=== PATIENT | female | born 1930 | race Caucasian/White ===

== ENCOUNTER 2016-09-15 12:06 | Outpatient (CLI) | payer OTHER ==
[2015-07-14 13:45] VITALS: BMI 23.4
--- NOTE | 2016-09-15 14:03 | DI ---
Examination: Two radiographic images of the chest. Comparison: 05/22/2014. Reason for study: Shortness of breath. FINDINGS: No pneumothorax, pleural effusion, or focal consolidation. The cardiac silhouette is unc hanged. Operative changes seen after ACDF. Surgical clips are seen in the right upper quadrant. Impression: No acute cardiopulmonary findings.
--- NOTE | 2016-09-15 14:15 | CT ---
EXAM: CT cervical spine without contrast HISTORY: Cervical radiculopathy COMPARISON: 05/19/2014 TECHNIQUE: CT cervical spine performed without intravenous contrast. Coronal and sagittal reformat tony images obtained. FINDINGS: There is redemonstration of anterior spinal fusion of C5-C7. Hardware appears intact. V ertebral bodies normal height. No fracture. No subluxation. Mild intervertebral disc is narrowing at C4-C5. Multilevel facet and uncovertebral hypertrophy. Mild biapical scarring. There is a new s oft tissue mass in the left neck lateral to the thyroid measuring 3.3 x 3.1 cm, incompletely imaged. Right thyroid nodule noted. Prevertebral soft tissues appear normal. C2-C3: No central canal or neural foraminal narrowing. C3-C4: No central canal or neural foraminal narrowing. C4-C5: Posterior disc osteophyte complex and facet arthrosis causing mild central canal and mild bi lateral neural foraminal narrowing. C5-C6: Posterior disc osteophyte complex and facet arthrosis causing mild bilateral neural foramina l narrowing. C6-C7: No central canal or neural foraminal narrowing. C7-T1: No central canal or neural foraminal narrowing. IMPRESSION: 1. Status post anterior spinal fusion C5-C7. No acute abnormality cervical spine. 2. Chronic discogenic degenerative disease and facet arthrosis. Please see segmental analysis. 3. Unexpected finding: New 3.3 cm soft tissue mass left neck, suspicious for malignancy. Please s ee separate report CT neck.
--- NOTE | 2016-09-15 14:18 | CT ---
Examination: Noncontrasted soft tissues CT examination of the neck. Comparison: 05/19/2014. Reason for study: Cervical radiculopathy with muscle spasm and left-sided neck swelling with pain i n jaw. FINDINGS: There is a new 3.7 x 3.5 x 4.0 m mass in the supraclavicular left anterior neck just infe rior and lateral to the left thyroid lobe. There are multiple prominent supraclavicular left-sided lymph nodes measuring up to 1.2 cm. The hypopharynx, oropharynx, subglottic region, and aerodigestive tract is unremarkable. Operative c hanges are seen after ACDF spanning C5-C7. Emphysematous changes are noted in the lung apices. Impression: 1. Unexpected finding. 4 cm mass in the left supraclavicular anterior neck with prominent left-side d paracervical lymph nodes. Findings are concerning for metastatic disease. Recommend further eval uation/biopsy is recommended. 2. Emphysematous and postoperative changes. 3. The aerodigestive tract appears unremarkable.
== END 2016-09-15 12:07 | disposition home or self-care (01) ==
LOC: RAD 12:06
PROVIDERS: ATTEND Emergency Medicine
DX: M54.12 Radiculopathy, cervical region (principal); M62.830 Muscle spasm of back

== ENCOUNTER 2016-09-19 08:55 | Outpatient (CLI) ==
[2015-07-14 13:45] VITALS: BMI 23.4
--- NOTE | 2016-09-19 10:21 | CT ---
Examination: Noncontrast CT helical imaging of the abdomen pelvis with axial, sagittal, and coronal reconstruction. Reason for study: Diarrhea and cervical lymphadenopathy. Comparison: Ultrasound of the abdomen performed 09/15/2010, ultrasound right upper quadrant perform ed 03/27/2013. FINDINGS: Within the partially imaged lung bases, there is bibasilar atelectasis and scarring. No pneumothora jenaro, pleural effusions, focal consolidations. Emphysematous changes are seen within the lung parench yma. Imaging interpretation is limited by lack of intravenous contrast administration. Atherosclerotic disease is seen within the aorta and distal arterial vasculature. The gallbladder is been removed. The liver, spleen, and adrenal glands are unremarkable. There is fatty infiltration of the pancreas. No hydronephrosis or hydroureter. There is no focal bowel dilatation or transition point. The appendix is not seen. There are scatte red colonic diverticula. No pelvic free fluid or intra-abdominal free air. There is a tiny only fa t containing periumbilical hernia. Inflammatory changes and prominent lymph nodes are seen throughout the abdominal mesentery measuring up to 3 cm. Operative changes are seen in the left hip. Circumscribed hypodensity in the right iliac seen on axial image number 49. Impression: 1. Unexpected finding. Prominent mesenteric lymph nodes measuring up to 3 cm with surrounding infl ammatory change. Imaging findings can be seen with inflammatory, infectious, and neoplastic etiolog ies (lymphoma). Recommend further evaluation. 2. No other acute findings are seen within the abdomen or pelvis.
== END 2016-09-19 08:56 | disposition home or self-care (01) ==
LOC: RAD 08:55
PROVIDERS: ATTEND Internal Medicine
DX: R19.7 Diarrhea, unspecified (principal); R59.0 Localized enlarged lymph nodes

== ENCOUNTER 2017-06-26 11:24 | Outpatient (CLI) ==
[2015-07-14 13:45] VITALS: BMI 23.4
--- NOTE | 2017-06-26 11:47 | DI ---
EXAM: CHEST FRONTAL AND LATERAL VIEWS HISTORY: Cough. COMPARISON: 09/15/2016 FINDINGS: Heart size remains within normal limits. Left port catheter has been placed ending over t he superior vena cava. Lungs are hyperinflated. Diffuse chronic-appearing interstitial changes. No definite consolidated pneumonia. Normal vascularity with no pneumothorax or pleural fluid. Stabili zation hardware over the lower cervical spine. IMPRESSION: Probable component chronic obstructive pulmonary disease, correlate clinically. No definite consolid ated pneumonia.
[2017-06-26 13:58] VITALS: BMI 21.1
== END 2017-06-26 11:25 | disposition home or self-care (01) ==
LOC: RAD 11:24
PROVIDERS: ATTEND Internal Medicine
DX: R05 Cough (principal)

== ENCOUNTER 2017-06-26 12:47 | Inpatient (IN) ==
[2017-06-26] MEDS ORDERED: MORPHINE 4 MG/ML VIAL IVP PRN (13:17)
[2017-06-26] MEDS ORDERED: ATROPINE SULFATE PFS IVP PRN (13:17)
[2017-06-26] MEDS ORDERED: VISTARIL INJ IM PRN (13:17)
[2017-06-26] MEDS ORDERED: NITROSTAT SL PRN (13:17)
[2017-06-26] MEDS ORDERED: SOLU-CORTEF 100 MG 100 MG in SODIUM CHLORIDE 100 ML IV ONE (13:23)
[2017-06-26 13:58] VITALS: BMI 21.1
[2017-06-26 14:16] LABS: BASOPHILS % (AUTO) 0.7 % (0.0-3.0); EOSINOPHILS # (AUTO) 0.1 K/ul (0.0-0.7); EOSINOPHILS % (AUTO) 1.7 % (0.0-7.0); HEMATOCRIT 33.3 % (37.0-47.0); HEMOGLOBIN 11.4 g/dl (12.0-16.0); IMMATURE GRANULOCYTE % (AUTO) 0.7 % (0.0-5.0); LYMPHOCYTES # (AUTO) 2.7 K/uL (0.60-3.4); LYMPHOCYTES % (AUTO) 57.5 (10.0-50.0); MEAN CORPUSCULAR HEMOGLOBIN 30.1 pg (27.0-31.0); MEAN CORPUSCULAR HGB CONC 34.2 (31.8-35.4); MEAN CORPUSCULAR VOLUME 87.9 fl (81.0-99.0); MONOCYTES # (AUTO) 0.5 K/uL (0.4-2.0); MONOCYTES % (AUTO) 11.7 (0-10); NEUTROPHILS # (AUTO) 1.3 K/ul (2.0-6.9); NEUTROPHILS % (AUTO) 27.7; PLATELET COUNT 152 10^3/uL (140-440); RED BLOOD COUNT 3.79 10^6/ul (4.20-5.40); WHITE BLOOD COUNT 4.61 K/ul (4.6-10.2)
[2017-06-26] MEDS ORDERED: NORCO 5-325 PO PRN ×2 (14:29→14:50)
[2017-06-26] MEDS ORDERED: ZOFRAN TAB PO PRN (14:50)
[2017-06-26] MEDS: ZITHROMAX PO SCH (14:53)
[2017-06-26] MEDS: DEXTROSE 5%-1/2NS IV SOLUTION 1,000 ML IV SCH (14:53)
[2017-06-26] MEDS: LEVAQUIN 250 MG in PREMIX 50 ML D5W 1 BAG IV SCH (14:53)
[2017-06-26] MEDS ORDERED: PROPRANOLOL HCL 10 MG PO SCH ×21 (15:00)
[2017-06-26] MEDS: SOLU-CORTEF 100 MG IVP SCH ×2 (15:13→20:32)
[2017-06-26 15:31] LABS: CREATINE KINASE 44 U/L; MYOGLOBIN 35 ng/ml
[2017-06-26 15:32] LABS: FLU INTERNAL QC INTERNAL QC VALID; RAPID FLU A NEGATIVE (NEGATIVE); RAPID FLU B NEGATIVE (NEGATIVE)
[2017-06-26] MEDS: INDERAL PO SCH ×2 (15:33→20:32)
[2017-06-26 16:53] LABS: BILIRUBIN,URINE 1+ (NEGATIVE); KETONES,URINE Negative (NEGATIVE); LEUKOCYTE ESTERASE ,URINE Trace (NEGATIVE); NITRITE,URINE Negative (NEGATIVE); PROTEIN,URINE 1+ (NEGATIVE); URINE, BLOOD Negative (NEGATIVE)
[2017-06-26 16:56] LABS: ADD URINE MICROSCOPIC YES
[2017-06-26] MEDS: DUONEB NEB SCH (17:17)
[2017-06-26 18:05] LABS: ALBUMIN/GLOBULIN RATIO 0.91; ANION GAP 16.3; BILIRUBIN,TOTAL 0.28 mg/dL (0.00-1.20); BUN/CREATININE RATIO 12.67; CALCIUM 9.7 mg/dL (8.2-10.2); CREATININE 0.71 mg/dL (0.60-1.30); POTASSIUM 3.3 mmol/L (3.5-5.10); TOTAL PROTEIN 6.3 g/dL (5.8-8.1)
[2017-06-26] MEDS ORDERED: NON-FORMULARY MEDICATION (Ondansetron Hcl [Zofran] 8 MG) PO SCH (21:00)
[2017-06-26] MEDS ORDERED: NON-FORMULARY MEDICATION (Atorvastatin Calcium [Atorvastatin Calcium] 40 MG) PO SCH ×22 (21:00)
[2017-06-26 21:55] LABS: CREATINE KINASE 41 U/L; MYOGLOBIN 34 ng/ml
[2017-06-27] MEDS: DUONEB NEB SCH ×3 (00:15→11:23)
[2017-06-27] MEDS: DEXTROSE 5%-1/2NS IV SOLUTION 1,000 ML IV SCH (03:50)
[2017-06-27 05:20] LABS: BASOPHILS % (AUTO) 0.3 % (0.0-3.0); HEMATOCRIT 27.7 % (37.0-47.0); HEMOGLOBIN 9.4 g/dl (12.0-16.0); IMMATURE GRANULOCYTE % (AUTO) 0.7 % (0.0-5.0); LYMPHOCYTES # (AUTO) 1.4 K/uL (0.60-3.4); LYMPHOCYTES % (AUTO) 47.2 (10.0-50.0); MEAN CORPUSCULAR HEMOGLOBIN 29.8 pg (27.0-31.0); MEAN CORPUSCULAR HGB CONC 33.9 (31.8-35.4); MEAN CORPUSCULAR VOLUME 87.9 fl (81.0-99.0); MONOCYTES # (AUTO) 0.3 K/uL (0.4-2.0); NEUTROPHILS # (AUTO) 1.2 K/ul (2.0-6.9); NEUTROPHILS % (AUTO) 42.8; PLATELET COUNT 122 10^3/uL (140-440); RED BLOOD COUNT 3.15 10^6/ul (4.20-5.40)
[2017-06-27 05:40] LABS: ALBUMIN 2.5 g/dL (3.4-5.0); ALBUMIN/GLOBULIN RATIO 0.93; ANION GAP 13.9; BILIRUBIN,TOTAL 0.17 mg/dL (0.00-1.20); BUN/CREATININE RATIO 13.04; CALCIUM 8.8 mg/dL (8.2-10.2); CREATININE 0.69 mg/dL (0.60-1.30); POTASSIUM 3.9 mmol/L (3.5-5.10); TOTAL PROTEIN 5.2 g/dL (5.8-8.1)
[2017-06-27] MEDS: SOLU-CORTEF 100 MG IVP SCH ×3 (06:25→21:00)
[2017-06-27] MEDS: PROTONIX PO SCH (06:25)
[2017-06-27] MEDS ORDERED: CHLORASEPTIC SPRAY MM PRN (08:37)
[2017-06-27] MEDS: LEVAQUIN 250 MG in PREMIX 50 ML D5W 1 BAG IV SCH (08:53)
[2017-06-27] MEDS: ASPIRIN EC PO SCH (08:55)
[2017-06-27] MEDS: INDERAL PO SCH ×3 (08:56→21:16)
[2017-06-27] MEDS: LIPITOR PO SCH (08:57)
[2017-06-27] MEDS: K-DUR PO SCH (08:57)
[2017-06-27] MEDS: MEGACE PO SCH (08:58)
[2017-06-27] MEDS: ZITHROMAX PO SCH (08:59)
[2017-06-27] MEDS ORDERED: ZYLOPRIM PO SCH (09:00)
[2017-06-27] MEDS ORDERED: NON-FORMULARY MEDICATION (Esomeprazole Magnesium [Nexium] 40 MG) PO SCH ×22 (09:00)
[2017-06-27] MEDS: ZYLOPRIM PO SCH (09:00)
--- NOTE | 2017-06-27 10:57 | PCM.PROG ---
Attending Provider: ATTENDING PROVIDER: Dr. DC ARRIETA DATE OF SERVICE: 06/27/17 SUBJECTIVE: This 86 year old WHITE/ F was hospitalized 06/26/17. The patient is hospitalized with acute pneumonitis and bronchitis. The patient's condition has improved, is feeling better. The patient has insomnia. REVIEW OF SYSTEMS: CONSTITUTIONAL: No night sweats. No fatigue, malaise, lethargy. No fever or chills. HEENT: Eyes: No visual changes. No eye pain. No eye discharge. ENT: No runny nose. No epistaxis. No sinus pain. No odynophagia. No congestion. RESPIRATORY: No cough, no congestion. No hemoptysis. No shortness of breath. CARDIOVASCULAR: No angina symptoms. No CHF symptoms. No atypical chest pain for CAD. No palpitations. No orthopnea.. GASTROINTESTINAL: Good appetite. No abdominal pain. No nausea or vomiting. No diarrhea or constipation. No hematemesis. No hematochezia. GENITOURINARY: No urgency. No frequency. No dysuria. No hematuria. No obstructive symptoms. No discharge. No pain. No significant abnormal bleeding. MUSCULOSKELETAL: No musculoskeletal pain; no joint swelling. NEUROLOGICAL: Awake, alert, oriented to time, place and person. No headache. No neck pain. No syncope. No seizures. No dizziness. PSYCHIATRIC: Not anxious. No depression. No suicidal thoughts. No homicidal thoughts. SKIN: No rash. No lesions. No wounds. ENDOCRINE: No unexplained weight loss. No weight gain. HEMATOLOGIC/LYMPHATIC: No anemia. No purpura. No petechiae. No prolonged or excessive bleeding. No palpable lymph nodes. PHYSICAL EXAMINATION: GENERAL: The patient is awake, alert and oriented, lying/sitting in bed in no distress. VITAL SIGNS: Temperature 97.9 F, Pulse 93, Respiratory Rate 18, BP 102/50, Pulse Ox 97% HEENT: Head normocephalic, atraumatic. Eyes: Extraocular muscles are intact. Pupils are equal, round and reactive to light and accommodation. Ears: No lesions. Nose appeared normal. Throat: No exudate or erythema. NECK: Supple. No JVD, no carotid bruit. No lymphadenopathy or thyromegaly. LUNGS: Decreased breath sounds. Clear to auscultation. Percussion note normal. Chest symmetrical. HEART: S1, S2, no S3. No murmurs. No cyanosis or clubbing. No ascites. Pulses: Dorsalis pedis and posterior tibial pulses +1 to +2 both sides. ABDOMEN: Soft. Non-tender. Bowel sounds active. No CVA tenderness. No mass felt. EXTREMITIES: No edema. Full range of motion of all extremities, equal. NEUROLOGIC: No focal deficit. Cranial nerves II through XII are grossly intact. No headache, no double vision or headache. SKIN: Not dry. Intact. Turgor-normal. LYMPHATIC: No palpable lymph nodes/no lymphedema. MUSCULOSKELETAL: Normal joints with no swelling. Muscle tone is normal. LAB REVIEW: 06/27/17 04:15 06/27/17 04:15 06/27/17 04:15: Sodium 139, Potassium 3.9, Chloride 109 H, Carbon Dioxide 20 L, Anion Gap 13.9, BUN 9, Creatinine 0.69, Estimated GFR (MDRD) 81.00, BUN/ Creatinine Ratio 13.04, Glucose 241 H D, Calcium 8.8, Total Bilirubin 0.17, AST 23, ALT 22, Alkaline Phosphatase 100 D, Total Protein 5.2 L, Albumin 2.5 L, Globulin 2.7, Albumin/Globulin Ratio 0.93 06/27/17 04:15: WBC 2.90 L, RBC 3.15 L, Hgb 9.4 L, Hct 27.7 L, MCV 87.9, MCH 29.8, MCHC 33.9, RDW Coeff of [place] 15.4 H, Plt Count 122 L, Immature Gran % (Auto ) 0.7, Neut % (Auto) 42.8, Lymph % (Auto) 47.2, [place] % (Auto) 9.0, Eos % (Auto) 0.0, Baso % (Auto) 0.3, Immature Gran # (Auto) 0.0, Neut # 1.2 L, Lymph # 1.4, [place] # 0.3 L, Eos # 0.0, Baso # 0.0 06/26/17 21:28: Total Creatine Kinase 41, Myoglobin 34, Troponin I < 0.0100 06/26/17 16:46: Urine Color Yellow, Urine Clarity Cloudy, Urine pH 6.0, Ur Specific [place] 1.025, Urine Protein 1+, Urine Glucose (UA) Negative, Urine Ketones Negative, Urine Blood Negative, Urine Nitrite Negative, Urine Bilirubin 1+, Urine Urobilinogen 0.2, Ur Leukocyte Esterase Trace, Urine Microscopic WBC 20-30, Ur Squamous Epith Cells Not present, Urine Mucus 3+ 06/26/17 14:55: Influenza A (Rapid) Negative, Influenza B (Rapid) Negative 06/26/17 13:55: Total Creatine Kinase 44, Myoglobin 35, Troponin I < 0.0100 06/26/17 13:55: Sodium 142, Potassium 3.3 L, Chloride 110 H, Carbon Dioxide 19 L , Anion Gap 16.3, BUN 9, Creatinine 0.71, Estimated GFR (MDRD) 78.00, BUN/ Creatinine Ratio 12.67, Glucose 108, Calcium 9.7, Total Bilirubin 0.28, AST 34, ALT 31, Alkaline Phosphatase 128, Total Protein 6.3, Albumin 3.0 L, Globulin 3.3 , Albumin/Globulin Ratio 0.91 06/26/17 13:55: WBC 4.61, RBC 3.79 L, Hgb 11.4 L, Hct 33.3 L, MCV 87.9, MCH 30.1 , MCHC 34.2, RDW Coeff of [place] 15.6 H, Plt Count 152, Immature Gran % (Auto) 0.7 , Neut % (Auto) 27.7, Lymph % (Auto) 57.5 H, [place] % (Auto) 11.7 H, Eos % (Auto) 1.7, Baso % (Auto) 0.7, Immature Gran # (Auto) 0.0, Neut # 1.3 L, Lymph # 2.7, [place] # 0.5, Eos # 0.1, Baso # 0.0 ASSESSMENT: PNEUMONITIS/BRONCHITIS IMPROVING. PLAN: 1. Continue steroids, antibiotics and nebs 2. D/C IV fluids Plan and coordination of the patient's care discussed in the presence of Job Development Specialist and nurse. CONDITION: Stable SCRIBED BY: VANIA HERNANDEZ Hand Spray Operator scribed while in presence of service performed by Dr. DC ARRIETA on 06/27/17 ([id number])
[2017-06-27] MEDS ORDERED: DUONEB NEB PRN (12:06)
--- NOTE | 2017-06-27 14:15 | HP ---
DATE OF SERVICE: 06/26/17 HISTORY OF PRESENT ILLNESS: This 86-year-old female presents with coughing, nasal congestion, fevers at night and pain with coughing and inspiration. She was supposed to start maintenance chemotherapy today. PAST MEDICAL HISTORY: Lymphadenopathy Dyslipidemia GERD MVP Hypertension MENSTRUAL HISTORY: Years ago PAST SURGICAL HISTORY: Neck Family unsure REVIEW OF SYSTEMS: CONSTITUTIONAL: Fever and fatigue. HEENT: Positive for sinus drainage. No sore throat. RESPIRATORY: Cough. No hemoptysis. CARDIOVASCULAR: Positive for mild shortness of breath. No atypical chest pain for coronary artery disease. No angina, CHF symptoms, or palpitations. GASTROINTESTINAL: No melena or abdominal pain. No GERD. GENITOURINARY: No hematuria, no polyuria. CENTRAL SCHEDULER: No blackout, no dizziness, no headache, no double vision. MUSCULOSKELETAL: Positive for osteoarthritis pain. No joint swelling. ENDOCRINE: No weight loss, no weight gain. SKIN: Not dry, no rash. PSYCHIATRIC: Not anxious, no depression, no suicidal thoughts, no homicidal thoughts. SOCIAL HISTORY: The patient is . Nonsmoker. No alcohol use. No illicit drug use. Children: Two, one girl 62 and one boy 55. Retired. FAMILY HISTORY: Father is in a fire. Mother with CAD. Brother: one of pancreatic cancer. Ten siblings, unsure of health/four brothers and six sisters. MEDICATIONS: Nexium 40 mg daily Lipitor 40 mg b.i.d. one daily Propranolol 10 mg t.i.d. K-tab 20 mg one daily Allopurinol one daily Ronan 5/325 p.r.n. Megace 400 mg/10 mL 20 mL daily Zofran 8 mg q.8hr p.r.n. nausea ALLERGIES: TYLENOL #3 PHYSICAL EXAMINATION: V/S: Temperature 97.7, pulse 93, 02 sat 97%, BP 132/64. Weight 105.4 lbs, height 5'0". BMI 19.3. GENERAL APPEARANCE: Oriented times three. HEENT: Normal. NECK: No JVP, no bruits. RESPIRATORY: Decreased breath sounds bilaterally. Crackles and rhonchi bilaterally. CARDIOVASCULAR: S1, S2, no S3, no murmurs. No cyanosis, clubbing. No ascites. GI/ABDOMEN: No tenderness. Bowel sounds are active. EXTREMITIES: No edema, pulses +1, equal. CENTRAL SCHEDULER: Deep tendon reflexes, sensory, motor and gait all normal. RECTAL/PELVIC: Dr. Leach 04/14. LABS: Hemoglobin 11.4, hematocrit 33.3, platelets 152, white count 4.61. ASSESSMENT: 1. ACUTE PNEUMONITIS 2. PLEURITIC PAIN 3. GENERALIZED WEAKNESS 4. FOLLICULAR LYMPHOMA, DR. GONZALEZ 5. LEFT SUPRACLAVICULAR AND MESENTERIC LYMPHADENOPATHY 6. FIBROMYALGIA 7. GERD 8. SEVERE DJD SPINE 9. STATUS POST CHOLECYSTECTOMY PLAN: 1. Routine telemetry orders 2. CBC/CMP daily 3. D5 1/2 NS at 75 cc/hr 4. Sputum culture 5. Blood culture times two 6. Duoneb q.6h scheduled 7. Levaquin 250 mg IV daily 8. Zithromax 500 mg p.o. daily times three days 9. Solu-Cortef 100 mg q.8hr IV one dose now 10. Rapid flu A/B 11. Regular diet 12. Continue home medications 13. 02 p.r.n. NC TIME SPENT: More than 70 minutes. MTDD
[2017-06-27] MEDS ORDERED: XANAX PO SCH (21:00)
[2017-06-28 05:11] LABS: BASOPHILS % (AUTO) 0.3 % (0.0-3.0); HEMATOCRIT 26.4 % (37.0-47.0); HEMOGLOBIN 9.1 g/dl (12.0-16.0); IMMATURE GRANULOCYTE % (AUTO) 15.2 % (0.0-5.0); LYMPHOCYTES # (AUTO) 1.2 K/uL (0.60-3.4); LYMPHOCYTES % (AUTO) 31.5 (10.0-50.0); MEAN CORPUSCULAR HEMOGLOBIN 30.2 pg (27.0-31.0); MEAN CORPUSCULAR HGB CONC 34.5 (31.8-35.4); MEAN CORPUSCULAR VOLUME 87.7 fl (81.0-99.0); MONOCYTES # (AUTO) 0.4 K/uL (0.4-2.0); MONOCYTES % (AUTO) 10.9 (0-10); NEUTROPHILS # (AUTO) 1.6 K/ul (2.0-6.9); NEUTROPHILS % (AUTO) 42.1; PLATELET COUNT 136 10^3/uL (140-440); RED BLOOD COUNT 3.01 10^6/ul (4.20-5.40); WHITE BLOOD COUNT 3.68 K/ul (4.6-10.2)
[2017-06-28 05:31] LABS: ALBUMIN 2.5 g/dL (3.4-5.0); ANION GAP 12.7; BILIRUBIN,TOTAL 0.2 mg/dL (0.00-1.20); BUN/CREATININE RATIO 21.31; CALCIUM 8.8 mg/dL (8.2-10.2); CREATININE 0.61 mg/dL (0.60-1.30); POTASSIUM 3.7 mmol/L (3.5-5.10)
[2017-06-28] MEDS: PROTONIX PO SCH (06:03)
[2017-06-28] MEDS: SOLU-CORTEF 100 MG IVP SCH (06:03)
[2017-06-28] MEDS: PREDNISONE PO SCH ×2 (09:12→17:03)
[2017-06-28] MEDS: ASPIRIN EC PO SCH (09:12)
[2017-06-28] MEDS: LIPITOR PO SCH (09:13)
[2017-06-28] MEDS: K-DUR PO SCH (09:13)
[2017-06-28] MEDS: INDERAL PO SCH ×3 (09:13→20:37)
[2017-06-28] MEDS: LEVAQUIN 250 MG in PREMIX 50 ML D5W 1 BAG IV SCH (09:13)
[2017-06-28] MEDS: ZITHROMAX PO SCH (09:14)
[2017-06-28] MEDS: ZYLOPRIM PO SCH (09:14)
[2017-06-28] MEDS: MEGACE PO SCH (09:14)
--- NOTE | 2017-06-28 09:18 | RS.PTINEVL ---
Subjective - Patient information Date of Evaluation: 06/27/17 Date of Arrival on Unit: 06/26/17 Diagnosis: acute pneumonitis, bronchitis Usual Living Arrangement: Alone Living Arrangement Comments: family close by. Home Environment: House, Stairs (few), No rail Medical History: Hypertension, Cancer (lymphoma) Surgical History: Cholecystectomy, Hysterectomy Surgical History Comments:: neck sx Subjective Information/ Patient Comments:: pt states she does not feel she needs therapy at this time. Did agree to evaluation, however does not feel she needs PT at this time. - Level of function Prior to this admission, the patient could do the following:: Independent ADL's , Independent Ambulation, Perform Childhood Teacher/Cooking Current Level of Function: Partially Dependent Current Equipment Used at Home: walker, Interventions - Objective Patient Orientation: Person, Place, Time, Situation Range of Motion - ROM Right Upper Extremity AROM: WFL's Left Upper Extremity AROM: WFL's Right Lower Extremity AROM: WFL's Left Lower Extremity AROM: WFL's Muscle Strength - Muscle Strength Right Upper Extremity Strength: Mild Weakness (BUE shld flex/ext 4/5, elbow flex /ext 4/5) Left Upper Extremity Strength: Mild Weakness (BUE shld flex/ext 4/5, elbow flex/ ext 4/5) Right Lower Extremity Strength: Mild Weakness (grossly 4/5) Left Lower Extremity Strength: Mild Weakness (grossly 4/5) Sensation - Sensation Right Upper Extremity Sensation: Intact/Normal Left Upper Extremity Sensation: Intact/Normal Right Lower Extremity Sensation: Intact/Normal Left Lower Extremity Sensation: Intact/Normal Balance - Sitting Balance and Reactions Static Sitting Balance: Normal Dynamic Sitting Balance: Good - Standing Balance and Reactions Static Standing Balance: Good Dynamic Standing Balance: Fair Standing Equilibrium Reactions: Delayed Left, Delayed Right Standing Protective Reactions: Delayed Left, Delayed Right - Comments Balance Assessment Comments: pt with slight increased lat sway, decreased step length. pt with 1 episode of LOB of which she corrected independently. Functional Mobility - Bed Mobility Rolling R/L: Independent Scooting: Independent Supine to Sit: Independent Sit to Supine: Independent - Transfers Sit to Stand: Supervision Stand to Sit: Supervision - Safety Awareness Safety Awareness: Good Ambulation - Ambulation Assistive Device Used: Gait belt Orthotic/Prosthetic Device: No Distance: 140ft Assistance needed with Ambulation: Supervision Gait Deviations: Short stride Factors Affecting Ambulation: Weakness, Limited Endurance Treatment time - Time with patient Total treatment time: 25 Patient Education - Education Patient Education: Home Safety Teaching Recipient: Patient Teaching Methods: Discussion (Discussed safety with amb, pt verbalized understanding of safety precautions) Assessment - Assessment Comments: pt presents with decreased strength, balance. pt does not feel she needs skilled PT at this time. pt states she has had alot of therapy and feels she does not need more at this time. Plan Frequency of Treatment: One time treatment Duration of Treatment: One Time Treatment Anticipated Discharge Destination: Home (eval only per pt request, pt does not feel she needs PT at this time) Has the Physician been added for Co-signature?: Yes
--- NOTE | 2017-06-28 11:37 | PCM.PROG ---
Attending Provider: ATTENDING PROVIDER: Dr. DC ARRIETA DATE OF SERVICE: 06/28/17 SUBJECTIVE: This 86 year old WHITE/ F was hospitalized 06/26/17. The patient is hospitalized with acute pneumonitis/bronchitis. The patient's condition is improved. She is sitting up and eating breakfast. Appetite has improved. REVIEW OF SYSTEMS: CONSTITUTIONAL: No night sweats. No fatigue, malaise, lethargy. No fever or chills. HEENT: Eyes: No visual changes. No eye pain. No eye discharge. ENT: No runny nose. No epistaxis. No sinus pain. No odynophagia. No congestion. RESPIRATORY: Mild cough and congestion. No hemoptysis. No shortness of breath. CARDIOVASCULAR: No angina symptoms. No CHF symptoms. No atypical chest pain for CAD. No palpitations. No orthopnea.. GASTROINTESTINAL: Appetite has improved. No abdominal pain. No nausea or vomiting. No diarrhea or constipation. No hematemesis. No hematochezia. GENITOURINARY: No urgency. No frequency. No dysuria. No hematuria. No obstructive symptoms. No discharge. No pain. No significant abnormal bleeding. MUSCULOSKELETAL: No musculoskeletal pain; no joint swelling. NEUROLOGICAL: Awake, alert, oriented to time, place and person. No headache. No neck pain. No syncope. No seizures. No dizziness. PSYCHIATRIC: Not anxious. No depression. No suicidal thoughts. No homicidal thoughts. SKIN: No rash. No lesions. No wounds. ENDOCRINE: No unexplained weight loss. No weight gain. HEMATOLOGIC/LYMPHATIC: No anemia. No purpura. No petechiae. No prolonged or excessive bleeding. No palpable lymph nodes. PHYSICAL EXAMINATION: GENERAL: The patient is awake, alert and oriented, lying in bed in no distress. VITAL SIGNS: Temperature 98.3 F, Pulse 103, Respiratory Rate 16, BP 131/78, Pulse Ox 97% HEENT: Head normocephalic, atraumatic. Eyes: Extraocular muscles are intact. Pupils are equal, round and reactive to light and accommodation. Ears: No lesions. Nose appeared normal. Throat: No exudate or erythema. NECK: Supple. No JVD, no carotid bruit. No lymphadenopathy or thyromegaly. LUNGS: Decreased breath sounds. Clear to auscultation. Percussion note normal. Chest symmetrical. HEART: S1, S2, no S3. No murmurs. No cyanosis or clubbing. No ascites. Pulses: Dorsalis pedis and posterior tibial pulses +1 to +2 both sides. ABDOMEN: Soft. Non-tender. Bowel sounds active. No CVA tenderness. No mass felt. EXTREMITIES: No edema. Full range of motion of all extremities, equal. NEUROLOGIC: No focal deficit. Cranial nerves II through XII are grossly intact. No headache, no double vision or headache. SKIN: Not dry. Intact. Turgor-normal. LYMPHATIC: No palpable lymph nodes/no lymphedema. MUSCULOSKELETAL: Normal joints with no swelling. Muscle tone is normal. LAB REVIEW: 06/28/17 04:55 06/28/17 04:55 06/28/17 04:55: Sodium 142, Potassium 3.7, Chloride 114 H, Carbon Dioxide 19 L, Anion Gap 12.7, BUN 13, Creatinine 0.61, Estimated GFR (MDRD) 93.00, BUN/ Creatinine Ratio 21.31, Glucose 155 H, Calcium 8.8, Total Bilirubin 0.20, AST 21 , ALT 22, Alkaline Phosphatase 87, Total Protein 5.0 L, Albumin 2.5 L, Globulin 2.5, Albumin/Globulin Ratio 1.00 06/28/17 04:55: WBC 3.68 L, RBC 3.01 L, Hgb 9.1 L, Hct 26.4 L, MCV 87.7, MCH 30.2, MCHC 34.5, RDW Coeff of [place] 15.7 H, Plt Count 136 L, Immature Gran % (Auto ) 15.2 H, Neut % (Auto) 42.1, Lymph % (Auto) 31.5, [place] % (Auto) 10.9 H, Eos % ( Auto) 0.0, Baso % (Auto) 0.3, Immature Gran # (Auto) 0.6, Neut # 1.6 L, Lymph # 1.2, [place] # 0.4, Eos # 0.0, Baso # 0.0 ASSESSMENT: 1. ACUTE PNEUMONITIS/BRONCHITIS IMPROVING. 2. HISTORY OF LYMPHOMA. 3. CONTINUE ANTIBIOTICS, STEROIDS AND NEBS TREATMENT PLAN: 1. Prednisone 10 mg p.o. b.i.d with meal Plan and coordination of the patient's care discussed in the presence of Inspector Glass Or Mirror and nurse. CONDITION: Stable SCRIBED BY: VANIA HERNANDEZ, Core Oven Tender scribed while in presence of service performed by Dr. DC ARRIETA on 06/28/17 ([id number])
[2017-06-29 05:12] LABS: HEMATOCRIT 25.9 % (37.0-47.0); HEMOGLOBIN 8.8 g/dl (12.0-16.0); MEAN CORPUSCULAR HEMOGLOBIN 29.7 pg (27.0-31.0); MEAN CORPUSCULAR VOLUME 87.5 fl (81.0-99.0); PLATELET COUNT 142 10^3/uL (140-440); RED BLOOD COUNT 2.96 10^6/ul (4.20-5.40); WHITE BLOOD COUNT 3.05 K/ul (4.6-10.2)
[2017-06-29 05:31] LABS: ALBUMIN 2.5 g/dL (3.4-5.0); ALBUMIN/GLOBULIN RATIO 1.14; ANION GAP 10.3; BILIRUBIN,TOTAL 0.25 mg/dL (0.00-1.20); BUN/CREATININE RATIO 23.33; CALCIUM 8.5 mg/dL (8.2-10.2); CREATININE 0.6 mg/dL (0.60-1.30); POTASSIUM 3.3 mmol/L (3.5-5.10); TOTAL PROTEIN 4.7 g/dL (5.8-8.1)
[2017-06-29 05:38] LABS: ANISOCYTOSIS NOT PRESENT (NOT PRESENT)
[2017-06-29] MEDS: PROTONIX PO SCH (05:43)
[2017-06-29] MEDS ORDERED: K-DUR PO SCH ×2 (09:00)
--- NOTE | 2017-06-29 09:24 | PCM.PROG ---
Attending Provider: ATTENDING PROVIDER: Dr. DC ARRIETA This patient is seen with Violet Ramirez, Nurse Practitioner. DATE OF SERVICE: 06/29/17 SUBJECTIVE: This 86 year old WHITE/ F was hospitalized 06/26/17. The patient is lying in bed, alert. She slept well last night. Cough improved. Strength improved. REVIEW OF SYSTEMS: CONSTITUTIONAL: No night sweats. Positive for weakness and fatigue. No fever or chills. HEENT: Eyes: No visual changes. No eye pain. No eye discharge. ENT: No runny nose. No epistaxis. No sinus pain. No odynophagia. No congestion. RESPIRATORY: Cough and congestion. No hemoptysis. No shortness of breath. CARDIOVASCULAR: No angina symptoms. No CHF symptoms. No atypical chest pain for CAD. No palpitations. No orthopnea.. GASTROINTESTINAL: No abdominal pain. No nausea or vomiting. No diarrhea or constipation. No hematemesis. No hematochezia. GENITOURINARY: No urgency. No frequency. No dysuria. No hematuria. No obstructive symptoms. No discharge. No pain. No significant abnormal bleeding. MUSCULOSKELETAL: No musculoskeletal pain; no joint swelling. NEUROLOGICAL: Awake, alert, oriented to time, place and person. No headache. No neck pain. No syncope. No seizures. No dizziness. PSYCHIATRIC: Not anxious. No depression. No suicidal thoughts. No homicidal thoughts. SKIN: No rash. No lesions. No wounds. ENDOCRINE: No unexplained weight loss. No weight gain. HEMATOLOGIC/LYMPHATIC: No anemia. No purpura. No petechiae. No prolonged or excessive bleeding. No palpable lymph nodes. PHYSICAL EXAMINATION: GENERAL: The patient is awake, alert and oriented, lying in bed in no distress. VITAL SIGNS: Temperature 98.2 F, Pulse 76, Respiratory Rate 16, BP 120/62, Pulse Ox 98% HEENT: Head normocephalic, atraumatic. Eyes: Extraocular muscles are intact. Pupils are equal, round and reactive to light and accommodation. Ears: No lesions. Nose appeared normal. Throat: No exudate or erythema. NECK: Supple. No JVD, no carotid bruit. No lymphadenopathy or thyromegaly. LUNGS: Diminished breath sounds bilaterally equal and clear to auscultation. Percussion note normal. Chest symmetrical. HEART: S1, S2, no S3. No murmurs. No cyanosis or clubbing. No ascites. Pulses: Dorsalis pedis and posterior tibial pulses +1 to +2 both sides. ABDOMEN: Soft. Non-tender. Bowel sounds active. No CVA tenderness. No mass felt. EXTREMITIES: No edema. Full range of motion of all extremities, equal. NEUROLOGIC: No focal deficit. Cranial nerves II through XII are grossly intact. No headache, no double vision or headache. SKIN: Not dry. Intact. Turgor-normal. LYMPHATIC: No palpable lymph nodes/no lymphedema. MUSCULOSKELETAL: Normal joints with no swelling. Muscle tone is normal. LAB REVIEW: 06/29/17 05:00 06/29/17 05:00 06/29/17 05:00: Sodium 142, Potassium 3.3 L, Chloride 114 H, Carbon Dioxide 21 L , Anion Gap 10.3, BUN 14, Creatinine 0.60, Estimated GFR (MDRD) 95.00, BUN/ Creatinine Ratio 23.33, Glucose 115, Calcium 8.5, Total Bilirubin 0.25, AST 23, ALT 23, Alkaline Phosphatase 77, Total Protein 4.7 L, Albumin 2.5 L, Globulin 2.2, Albumin/Globulin Ratio 1.14 06/29/17 05:00: WBC 3.05 L, RBC 2.96 L, Hgb 8.8 L, Hct 25.9 L, MCV 87.5, MCH 29.7, MCHC 34.0, RDW Coeff of Olivia 15.7 H, Plt Count 142, Neutrophils % (Manual) 59.0, Band Neutrophils % 3.0, Lymphocytes % (Manual) 20.0, Monocytes % (Manual) 5.0, Metamyelocytes % 5.0 H, Myelocytes % 8.0 H, Anisocytosis Not present ASSESSMENT: 1. ACUTE PNEUMONITIS/BRONCHITIS IMPROVING. 2. HISTORY OF LYMPHOMA. 3. CONTINUE ANTIBIOTICS, STEROIDS AND NEBS TREATMENT 4. ANEMIA 5. HYPOKALEMIA PLAN: 1. Potassium 40 mg b.i.d. 2. The patient would like to go home today Plan and coordination of the patient's care discussed in the presence of Calibration Technician and nurse. CONDITION: Stable SCRIBED BY: Jeronimo CLARKE scribed while in presence of service performed by Dr. Arrieta/Violet Ramirez APRN on 06/29/17 ([id number])
[2017-06-29] MEDS: MEGACE PO SCH (09:41)
[2017-06-29] MEDS: INDERAL PO SCH (09:41)
[2017-06-29] MEDS: LEVAQUIN 250 MG in PREMIX 50 ML D5W 1 BAG IV SCH (09:41)
[2017-06-29] MEDS: ASPIRIN EC PO SCH (09:42)
[2017-06-29] MEDS: LIPITOR PO SCH (09:42)
[2017-06-29] MEDS: PREDNISONE PO SCH (09:42)
[2017-06-29] MEDS: ZYLOPRIM PO SCH (09:42)
[2017-06-29 10:27] VITALS: BP 118/61; TEMP 97.4
--- NOTE | 2017-06-29 10:46 | CM.DICTOOL ---
ADMISSION: 06/26/17 12:47 DISCHARGE: 06/29/17 FINAL DIAGNOSIS ACUTE PNEUMONITIS PLEURITIC PAIN GENERALIZED WEAKNESS FOLLICULAR LYMPHOMA, S/P CHEMO HYPERTENSION HYPERGLYCEMIA GERD FIBROMYALGIA DJD SPINE ANEMIA HYPOKALEMIA LAST VITALS Temp Pulse Resp BP Pulse Ox 98.2 F 76 16 120/62 98 06/29/17 05:23 06/29/17 05:23 06/29/17 05:23 06/29/17 05:23 06/29/17 05:23 ACTIVE HOME MEDICATIONS Acetaminophen/Hydrocodone Bitart ([place] 5-325) 1 - 2 tab PO Q6HR PRN PRN Reason: pain Allopurinol (Zyloprim) 300 mg PO DAILY [facility] Last Admin: 06/29/17 09:42 Dose: 300 mg Aspirin (Aspirin Ec) 81 mg PO DAILYWM [facility] Last Admin: 06/29/17 09:42 Dose: 81 mg Atorvastatin Calcium (Lipitor) 40 mg PO DAILY [facility] Last Admin: 06/29/17 09:42 Dose: 40 mg Megestrol Acetate (Megace) 800 mg PO DAILY [facility] Last Admin: 06/29/17 09:41 Dose: 800 mg Ondansetron HCl (Zofran Tab) 8 mg PO Q8H PRN PRN Reason: NAUSEA Potassium Chloride (K-Dur) 20 meq PO BIDWM [facility] Last Admin: 06/29/17 09:41 Dose: 40 meq Propranolol HCl (Inderal) 10 mg PO TID [facility] Last Admin: 06/29/17 09:41 Dose: 10 mg ALLERGIES acetaminophen [From Tylenol-Codeine #3] Adverse Reaction (Verified 07/14/15 14: 21) alendronate sodium [From Fosamax] Adverse Reaction (Verified 07/14/15 14:21) cephalexin monohydrate [From Keflex] Adverse Reaction (Verified 07/14/15 14:21) codeine phosphate [From Tylenol-Codeine #3] Adverse Reaction (Verified 07/14/15 14:21) dexamethasone [From Decadron] Adverse Reaction (Verified 07/14/15 14:21) dexamethasone sod phosphate [From Decadron] Adverse Reaction (Verified 07/14/15 14:21) hydromorphone HCl [From Dilaudid] Adverse Reaction (Verified 07/14/15 14:21) metoclopramide HCl [From Reglan] Adverse Reaction (Verified 07/14/15 14:21) prednisone Adverse Reaction (Verified 07/14/15 14:21) NEW PRESCRIPTIONS: NEW MEDICATIONS: 1. LEVAQUIN 250MG TAKE 1 BY MOUTH DAILY FOR 5 DAYS 2. PREDNISONE 10MG TAKE 1 BY MOUTH 2 TIMES A DAY FOR 5 DAYS. TAKE WITH FOOD. SMOKING: N/A DISEASE SPECIFIC EDUCATION: PNEUMONIA ANEMIA HYPOKALEMIA STEROIDS MEDICATIONS ACTIVITY DIET LAB REVIEW: 06/29/17 05:00 06/29/17 05:00 06/29/17 05:00: Sodium 142, Potassium 3.3 L, Chloride 114 H, Carbon Dioxide 21 L , Anion Gap 10.3, BUN 14, Creatinine 0.60, Estimated GFR (MDRD) 95.00, BUN/ Creatinine Ratio 23.33, Glucose 115, Calcium 8.5, Total Bilirubin 0.25, AST 23, ALT 23, Alkaline Phosphatase 77, Total Protein 4.7 L, Albumin 2.5 L, Globulin 2.2, Albumin/Globulin Ratio 1.14 06/29/17 05:00: WBC 3.05 L, RBC 2.96 L, Hgb 8.8 L, Hct 25.9 L, MCV 87.5, MCH 29.7, MCHC 34.0, RDW Coeff of Olivia 15.7 H, Plt Count 142, Neutrophils % (Manual) 59.0, Band Neutrophils % 3.0, Lymphocytes % (Manual) 20.0, Monocytes % (Manual) 5.0, Metamyelocytes % 5.0 H, Myelocytes % 8.0 H, Anisocytosis Not present PLAN: DISCHARGE HOME TODAY. CONTINUE HOME MEDICATIONS PER NURSING SHEETS EXCEPT: 1. INCREASE YOUR POTASSIUM TO 40MEQ DAILY FOR 3 DAYS THEN RETURN TO 20MEQ DAILY. NEW MEDICATIONS: 1. LEVAQUIN 250MG TAKE 1 BY MOUTH DAILY FOR 5 DAYS 2. PREDNISONE 10MG TAKE 1 BY MOUTH 2 TIMES A DAY FOR 5 DAYS. TAKE WITH FOOD. GRADUALLY RESUME YOUR ACTIVITY. DIET TOLERATED. FOLLOW UP WITH DR. ARRIETA ON Sunday THE AT 930AM. CALL IF UNABLE TO KEEP APPOINTMENT. [phone]. SLEEPING. AWAKENS EASILY. ALERT AND ORIENTED X 4. [employer] SUPERVISOR INTO SEE PATIENT. PATIENT STATES SLEPT WELL AND IS FEELING BETTER. EXPRESSES DESIRE TO GO HOME. Meño WINKLER DISCUSSED CURRENT LAB RESULTS AND STATES SHE WILL ADDRESS LABS AND PATIENT'S WISHES WITH DR. ARRIETA. IF DR. ARRIETA AGREEABLE WILL DISCHARGE HOME. PATIENT VERBALIZES UNDERSTANDING AND AGREEMENT. APPETITE HAS BEEN FAIR TO GOOD. VITAL SIGNS ARE STABLE. HAS BEEN AFEBRILE. POX 98% ON ROOM AIR. LUNGS ARE CLEAR BUT DIMINISHED. HAS NON-PRODUCTIVE COUGH AT TIMES. IS DYSPNEIC WITH ACTIVITY. HEART TONES ARE REGULAR. DENIES CHEST PAIN OR DISCOMFORT. ABODMEN IS SOFT, NON-TENDER WITH BOWEL SOUNDS POSITIVE IN ALL 4 QUADS. PEDAL PULSES ARE POSITIVE WITHOUT EDEMA. HAS SALINE LOCK IN LEFT MEDI-PORT SITE IS CLEAR. REMAINS WEAK WITH FALL PRECAUTIONS IN USE. IS A STAND-BY ASSIST WITH ACTIVITIES. DR. DC ARRIETA MD Meño WINKLER APRN
--- NOTE | 2017-07-02 11:30 | PN ---
DATE OF SERVICE: 06/29/17 SUBJECTIVE: The patient was seen this morning. The patient is doing fine coughing much less. Appetite has improved. There is no leukopenia of any significance. Hgb and Hct are stable. Mild Hypokalemia, should be solved with good food intake with bananas. PHYSICAL EXAMINATION: HEENT: Head normocephalic, atraumatic. Eyes: Extraocular muscles are intact. Pupils are equal, round and reactive to light and accommodation. Ears: No lesions. Nose appeared normal. Throat: No exudate or erythema. NECK: Supple. No JVD, no carotid bruit. No lymphadenopathy or thyromegaly. LUNGS: Decreased breath sounds but clear to auscultation. Percussion note normal. Chest symmetrical. HEART: S1, S2, no S3. No murmurs. No cyanosis or clubbing. No ascites. Pulses: Dorsalis pedis and posterior tibial pulses +1 to +2 both sides. ABDOMEN: Soft. Nontender. Bowel sounds active. No CVA tenderness. No mass felt. EXTREMITIES: No edema. Full range of motion of all extremities, equal. NEUROLOGIC: No focal deficit. Cranial nerves II through XII are grossly intact. No headache, no double vision or headache. SKIN: Not dry. Intact. Turgor - normal. LYMPHATIC: No palpable lymph nodes/no lymphedema. MUSCULOSKELETAL: Normal joints with no swelling. Muscle tone is normal. ASSESSMENT: 1. The patient has lymphoma, advised to follow up with Oncologist she could resume her Chemotherapy. The patient was seen and examined with Nurse Practitioner. TIME SPENT: More than 30 minutes. Plan and coordination of the patient's care discussed in the presence of nurse. FELIX
--- NOTE | 2017-07-02 11:31 | PN ---
06/26/17: Level 5 06/27/17: Intermediate 06/28/17: Intermediate 06/29/17: D as in discharge MTDD
--- NOTE | 2017-07-03 09:27 | DS ---
DATE OF SERVICE: 06/29/17 FINAL DIAGNOSIS: 1. ACUTE PNEUMONITIS 2. PLEURITIC PAIN 3. GENERALIZED WEAKNESS 4. FOLLICULAR LYMPHOMA STATUS POST CHEMO 5. HYPERTENSION 6. HYPERGLYCEMIA 7. GERD 8. FIBROMYALGIA 9. DJD SPINE 10. ANEMIA 11. HYPOKALEMIA DISCHARGE INSTRUCTIONS: Followup appointment: Dr. Diaz on July 02 at 9:30 a.m. Call if unable to keep appointment [phone] MEDICATIONS AT DISCHARGE: Acetaminophen/Hydrocodone ([place] 5-325) 1-2 tab p.o. q.6hr p.r.n. Allopurinol 300 mg p.o. daily [facility] Aspirin 81 mg p.o. daily with meal [facility] Lipitor 40 mg p.o. daily [facility] Megace 800 mg p.o. daily [facility] Zofran 8 mg p.o. q.8h p.r.n. K-Dur 20 mEq p.o. b.i.d. with meal [facility] Inderal 10 mg p.o. t.i.d. [facility] NEW PRESCRIPTIONS: Levaquin 250 mg take one by mouth daily for 5 days Prednisone 10 mg take one by mouth two times a day for 5 days. Take with food. DIET INSTRUCTIONS: As tolerated ACTIVITY: Gradually resume your activity SMOKING: N/A DISEASE SPECIFIC EDUCATION: Pneumonia Anemia Hypokalemia Steroids Medications Activity Diet HOSPITAL COURSE: This is an 86-year-old white female who was a direct admit from our office. She presented to the office after having cough and congestion for the past several days. She was very weak, short of breath. She was experiencing pain with breathing. She has a history of follicular lymphoma, just finished chemo approximately 4 to 6 weeks ago and was scheduled to start maintenance chemotherapy this week; however, Dr. Van sent her to our office due to her cough and congestion. In the office, the patient had been running fever, temperature of 99. She states at home, for the past 4 to 5 days, she had had a fever up to 102 at night. She was admitted, placed on IV fluids at 75 cc/hr. She was placed on Levaquin 250 mg IV daily along with Solu-Cortef 125 mg IV q.8hr. Chest x-ray revealed COPD like changes and acute bronchitis. No pneumonia. No consolidated area. She had fever the first day after admission and then has had none since. She has improved significantly with IV fluids and states she is feeling stronger. Kidney function is normal. Her blood pressure has been normal. Yesterday she ate 75 to 50% of her meals. She stated that she slept well last night. Her cough has significantly improved. She had been experiencing yellow-greenish sputum with a productive cough which has since been gone for the past two days. She is anemic somewhat today. Her highest hemoglobin has been around 9. She does have chronic anemia due to the history of chemotherapy and the lymphoma. Today it is 8.8 down from 9.1. Likely this is due to hemodilution from IV fluids and again she has chronic anemia due to her underlying medical conditions. We will have her take 40 mEq of potassium for the next two days and then resume her 20 mEq daily. We will send her home on Levaquin 250 mg daily by mouth for the next five days along with Prednisone 10 mg by mouth twice a day for the next five days. She is instructed to gradually increase her activity as tolerated, continue with increased fluids and increased rest. We will see her early next week and then she is also to keep her followup appointment with Dr. Van. The patient's labs were discussed with her and she demonstrates understanding. She strongly wishes to go home today and be discharged. We will do this with close followup. Today's vital signs: Temperature 98.2, heart rate 76, respirations 16, blood pressure 120/62, pulse ox 98%. TIME SPENT: More than 60 minutes. MTDD
== END 2017-06-29 11:55 | disposition home or self-care (01) | DRG 194 ==
LOC: MEDSURG A 12:47 → UNDOADMIN 12:47
PROVIDERS: ADMIT Internal Medicine; ATTEND Internal Medicine
DX: J18.9 Pneumonia, unspecified organism (principal); C82.90 Follicular lymphoma, unspecified, unspecified site; J20.9 Acute bronchitis, unspecified; R07.81 Pleurodynia; I10 Essential (primary) hypertension; R53.1 Weakness; E87.6 Hypokalemia; R73.9 Hyperglycemia, unspecified; K21.9 Gastro-esophageal reflux disease without esophagitis; M79.7 Fibromyalgia; M47.9 Spondylosis, unspecified; D50.0 Iron deficiency anemia secondary to blood loss (chronic); Z79.899 Other long term (current) drug therapy
CPT/HCPCS: 36415; 80053; 81001; 82550; 83874; 84484; 85007; 85025; 87040; 87086; 87186; 87804; 93005; 93010; 94640

== ENCOUNTER 2017-12-21 11:06 | Outpatient (CLI) | payer OTHER ==
--- NOTE | 2017-12-21 13:29 | CT ---
EXAM: CT chest without contrast HISTORY: Worsening cough, lymphoma TECHNIQUE: Multi-slice transaxial helical with coronal and sagittal reformed images CONTRAST: None COMPARISON: CT cervical spine from 09/15/2016 that includes images of the thoracic inlet. Prior microbiology teacher ss-sectional imaging exams of the thorax are not available for comparison. FINDINGS: A small soft tissue mass with peripheral calcification is detected at the left side the tho racic inlet anteriorly measuring 2.1 x 2.3 cm. Previous mass in the same region was previously 3.1 x 3.3 cm. A left subclavian venous access port catheter is in place. The ascending thoracic aorta is minimally ectatic to 32 mm. The heart size is normal. No pericardial or left pleural fluid appreci ated. Trace right pleural fluid layers dependently. A low right paratracheal space lymph node has a fatty hilum and measures 8.1 mm. No suspicious lymphadenopathy is detected at the bianca. There is b ronchiectasis with mucus plugging in the right lower lobe. The interlobular septa are thickened diff usely. There is volume loss and/or infiltrate in the right lower lobe. There are scattered calcifications within the pancreatic parenchyma. The gallbladder is surgically a bsent without dilatation. The solid abdominal organs are otherwise normal in their visualized portio ns of the upper abdomen. The bones are free of suspicious osteolytic or osteoblastic lesions. IMPRESSION: 1. Decreased size of soft tissue mass at the left side of the thoracic inlet with calcifications sug gests treated lymphoma. Residual disease cannot be entirely excluded. 2. Bronchiectasis with mucus plugging in the right lower lobe with secondary pneumonia and/or atelec tasis in the right lower lobe. Consider correlation with bronchoscopy. 3. Interstitial lung disease. 4. Minimal ectasia of the ascending thoracic aorta to 32 mm. 5. Suggestion of mild chronic pancreatitis.
== END 2017-12-21 11:07 | disposition home or self-care (01) ==
LOC: RAD 11:06
PROVIDERS: ATTEND Internal Medicine
DX: R05 Cough (principal); C82.90 Follicular lymphoma, unspecified, unspecified site

== ENCOUNTER 2018-01-16 10:25 | Outpatient (CLI) | payer OTHER | END 2018-01-16 10:26 | disposition home or self-care (01) | LOC: LAB 10:25 | PROVIDERS: ATTEND Specialist | DX: C82.99 Follicular lymphoma, unspecified, extranodal and solid organ sites (principal); D70.9 Neutropenia, unspecified | CPT/HCPCS: 36415; 85025 ==

== ENCOUNTER 2018-01-23 10:14 | Outpatient (CLI) | END 2018-01-23 10:15 | disposition home or self-care (01) | LOC: LAB 10:14 | PROVIDERS: ATTEND Specialist | DX: C82.99 Follicular lymphoma, unspecified, extranodal and solid organ sites (principal); D70.9 Neutropenia, unspecified | CPT/HCPCS: 36415; 85025 ==

== ENCOUNTER 2018-01-30 10:25 | Outpatient (CLI) | payer OTHER | END 2018-01-30 10:26 | disposition home or self-care (01) | LOC: LAB 10:25 | PROVIDERS: ATTEND Specialist | DX: C82.99 Follicular lymphoma, unspecified, extranodal and solid organ sites (principal); D70.9 Neutropenia, unspecified | CPT/HCPCS: 36415; 85025 ==

== ENCOUNTER 2018-02-06 10:02 | Outpatient (CLI) | payer OTHER | END 2018-02-06 10:03 | disposition home or self-care (01) | LOC: LAB 10:02 | PROVIDERS: ATTEND Specialist | DX: C82.99 Follicular lymphoma, unspecified, extranodal and solid organ sites (principal); D70.9 Neutropenia, unspecified | CPT/HCPCS: 36415; 85025 ==

== ENCOUNTER 2018-02-13 10:43 | Outpatient (CLI) | END 2018-02-13 10:44 | disposition home or self-care (01) | LOC: LAB 10:43 | PROVIDERS: ATTEND Specialist | DX: C82.99 Follicular lymphoma, unspecified, extranodal and solid organ sites (principal); D70.9 Neutropenia, unspecified | CPT/HCPCS: 36415; 85025 ==

== ENCOUNTER 2018-02-20 10:26 | Outpatient (CLI) | END 2018-02-20 10:27 | disposition home or self-care (01) | LOC: LAB 10:26 | PROVIDERS: ATTEND Specialist | DX: C82.99 Follicular lymphoma, unspecified, extranodal and solid organ sites (principal); D70.9 Neutropenia, unspecified | CPT/HCPCS: 36415; 85025 ==

== ENCOUNTER 2018-02-27 10:40 | Outpatient (CLI) | END 2018-02-27 10:41 | disposition home or self-care (01) | LOC: LAB 10:40 | PROVIDERS: ATTEND Specialist | DX: C82.99 Follicular lymphoma, unspecified, extranodal and solid organ sites (principal); D70.9 Neutropenia, unspecified | CPT/HCPCS: 36415; 85025 ==

== ENCOUNTER 2018-04-12 13:45 | Outpatient (CLI) | payer OTHER ==
--- NOTE | 2018-04-15 11:42 | MAMMO ---
EXAM: Bilateral digital screening mammogram (2-D and 3-D) History: Screening Comparison: Bilateral mammogram 11/19/2013 Findings: MLO and CC views of bilateral breasts demonstrate scattered fibroglandular breast parenchy ma. CAD was viewed by the radiologist. Tomosynthesis was performed. Stable benign bilateral breast calcifications. There are no dominant masses, no suspicious microcalcifications and no architectural distortions Impression: Benign stable mammogram. Recommend followup routine screening mammography in 1 year. BIRADS 2
== END 2018-04-12 13:46 | disposition home or self-care (01) ==
LOC: RAD 13:45
PROVIDERS: ATTEND Internal Medicine
DX: Z12.31 Encounter for screening mammogram for malignant neoplasm of breast (principal)
CPT/HCPCS: 77067

== ENCOUNTER 2018-11-07 10:05 | Emergency (ER) ==
[2018-11-07 10:12] VITALS: BP 124/77; TEMP 97; BMI 20.5
--- NOTE | 2018-11-07 10:33 | ED.PDOC ---
General ED Provider: Dr. LOREN ORTIZ Chief Complaint: Back Pain Stated Complaint: Low back pain. The patient's son stated that his mother received Chemo last sit for an unusually long time in an uncomfortable chair. Since that time the pain has been increasingly worse. Pain is located in Rt LS region and just above the coccyx. Time Seen by Physician: 10:25 Mode of Arrival: Walk-In Information Source: Patient Exam Limitations: No limitations Primary Care Provider: DC ARRIETA Nursing and Triage Documentation Reviewed and Agree: Yes Does patient meet sepsis criteria?: No System Inflammatory Response Syndrome: Not Applicable Sepsis Protocol: For patient's 13 years and over: Temp is 96.8 and below OR 101 and greater Pulse >90 BPM Resp >20/minute Acutely Altered Mental Status Are patient's symptoms suggestive of a new infection, such as: -Pneumonia -Skin, Soft Tissue -Endocarditis -UTI -Bone, Joint Infection -Implantable Device -Acute Abdominal Infection -Wound Infection -Meningitis -Blood Stream Catheter Infection -Unknown Musculoskeletal Complaint Exam - Back Pain Complaint/Exam Mechanism of Injury: Reports: No known trauma Onset/Duration: 5 days Symptoms Are: Still present Timing: Constant (with intermittent worsening) Episodes Lasting: Hours Initial Severity: Mild Current Severity: Moderate Location: Reports: Diffuse Character: Reports: Aching, Stiffness Aggravating: Reports: Movements Alleviating: Reports: Rest Associated Signs and Symptoms: Denies: Swelling, Redness, Bruising, Fever, Weakness, Numbness, Tingling, Abdominal pain, Flank pain, Bladder incontinence, Bowel incontinence, Weight loss, Pain with weight bearing Related History: Reports: Similar episode TAD Risk Factors: Reports: None AAA Risk Factors: Reports: None Cauda Equina Risk Factors: Reports: None Epidural Abcess Risk Factors: Reports: None Related Surgical History: Reports: None Focal Tenderness: Yes (RT SI) Paraspinal Muscle Tenderness: No Paraspinal Muscle Spasm: No Scoliosis: No Lordosis: No Kyphosis: No SLR Test: Right Negative Hip Motion Testing Pain: Right Positive, Right Negative, Left Negative Focal Weakness: Present: None, RLE Focal Sensory Loss: Present: None Gait: Present: Unsteady Differential Diagnoses: Fracture, Neoplasm, Strain, Sprain, Other (OA/ Compression fx) Review of Systems - Review Of Systems Constitutional: Reports: Weakness Eyes: Reports: No symptoms Ears, Nose, Mouth, Throat: Reports: No symptoms Respiratory: Reports: No symptoms Cardiac: Reports: No symptoms GI: Reports: No symptoms : Reports: No symptoms Musculoskeletal: Reports: Back pain, Muscle pain Skin: Reports: No symptoms Neurological: Reports: No symptoms Endocrine: Reports: No symptoms Hematologic/Lymphatic: Reports: No symptoms All Other Systems: Reviewed and Negative Past Medical History - Past Medical History Endocrine: Reports: None Cardiovascular: Reports: Hypertension Respiratory: Reports: None Hematological: Reports: None Gastrointestinal: Reports: None Genitourinary: Reports: None Neuro/Psych: Reports: None Musculoskeletal: Reports: None Cancer: Reports: None Last Menstrual Period: Unknown - Surgical History General Surgical History: Reports: Hysterectomy, Cholecystectomy, Orthopedic ( left hip pinning; neck surgery) - Family History Family History: Reports: Unknown - Social History Smoking Status: Never smoker Hx Substance Use: No Alcohol Screening: None - Immunizations Tetanus Shot up to Date: No Physical Exam - Physical Exam Appearance: Well-appearing, No pain distress, Well-nourished Eyes: MAYA, EOMI, Conjunctiva clear ENT: Ears normal, Nose normal, Oropharynx normal Respiratory: Airway patent, Breath sounds clear, Breath sounds equal, Respirations nonlabored Cardiovascular: RRR, Pulses normal, No rub, No murmur GI/: Soft, Nontender, No masses, Bowel sounds normal, No Organomegaly Musculoskeletal: Normal strength, ROM intact, No edema, No calf tenderness Skin: Warm, Dry, Normal color Neurological: Sensation intact, Motor intact, Reflexes intact, Cranial nerves intact, Alert, Oriented Psychiatric: Affect appropriate, Mood appropriate Interpretation - EKG Interpretation Time of EKG #1: 10:15 Rate: Normal Rhythm: Sinus Ectopy: None [place]: NL ST Segment: Normal Procedures - Additional Procedures Additional Procedures: Other (OMT- Rt LS and SI region for tx of Lumbar and SI somatic dysfunction-Symptomatic resolution of patient presenting symptoms ) Re-Evaluation - Re-Evaluation Time of Re-Evaluation: 11:15 Status: Improved Vital Signs Stable: Yes Appearance: NAD Lungs: Clear Skin: Warm and Dry Neuro: Alert and Oriented X3 CV: RRR Critical Care Note - Critical Care Note Total Time (mins): 0 Course - Course Orders, Labs, Meds: Orders Category Date Time Status LUMBAR SPINE, 2 OR 3 VIEWS Stat RADS 11/07/18 10:32 Completed Vital Signs: Temp Pulse Resp BP Pulse Ox 11/07/18 10:06 97.0 F L 90 16 124/77 96 Departure - Departure Time of Disposition: 11:15 Disposition: HOME SELF-CARE Discharge Problem: Low back pain, Somatic dysfunction of spine, lumbar, Somatic dysfunction of right sacroiliac joint Instructions: Lumbar Facet Block (DC), Acute Low Back Pain (ED), Lower Back Exercises (ED) Condition: Good Pt referred to PMD for follow-up: Yes IPMP verified?: No Allergies/Adverse Reactions: Allergies alendronate sodium [From Fosamax] Adverse Reaction (Verified 11/07/18 10:24) cephalexin monohydrate [From Keflex] Adverse Reaction (Verified 11/07/18 10:24) codeine phosphate [From Tylenol-Codeine #3] Adverse Reaction (Verified 11/07/18 10:24) dexamethasone [From Decadron] Adverse Reaction (Verified 11/07/18 10:24) dexamethasone sod phosphate [From Decadron] Adverse Reaction (Verified 11/07/18 10:24) hydromorphone HCl [From Dilaudid] Adverse Reaction (Verified 11/07/18 10:24) metoclopramide HCl [From Reglan] Adverse Reaction (Verified 11/07/18 10:24) prednisone Adverse Reaction (Verified 11/07/18 10:24) Home Medications: Ambulatory Orders Hydrocodone Bit/Acetaminophen [[place] 5-325] 1 - 2 tab PO Q6HR PRN #12 tablet Propranolol HCl 10 mg PO TID 07/14/15 Allopurinol 100 mg PO DAILY 06/26/17 Ondansetron HCl [Zofran] 8 mg PO Q8HR 06/26/17 Potassium Chloride [K-Dur] 40 meq PO DAILY 3 Days tab 06/29/17 Omeprazole 20 mg PO DAILY 11/07/18 Transfer Form Completed: Yes Disposition Discussed With: Patient, Family
--- NOTE | 2018-11-07 10:51 | DI ---
EXAM: Three views of the lumbar spine. History: Lower back pain. Findings: Cholecystectomy clips. Hardware seen within the left hip. Atherosclerotic vascular calci fications. Osteopenia. No acute fracture or subluxation of the lumbar spine. Mild multilevel disc space narrowing with endplate sclerosis and tiny osteophytes. Some type of metallic device is seen p rojecting over the left upper quadrant of the abdomen. Impression: 1. No acute osseous abnormality of the lumbar spine. 2. Mild arthritis. 3. Atherosclerotic vascular disease
== END 2018-11-07 11:42 | disposition home or self-care (01) ==
LOC: ED 10:05
DX: M54.5 Low back pain (principal); M99.03 Segmental and somatic dysfunction of lumbar region; M99.04 Segmental and somatic dysfunction of sacral region
CPT/HCPCS: 99283